=== PATIENT | female | born 1990 | race Caucasian/White ===

== ENCOUNTER 2024-01-13 11:23 | Outpatient (CLI) | payer OTHER, SELFPAY ==
[2024-01-13 12:01] LABS: Hematocrit 41.5 % (37.0-47.0); Hemoglobin 14.1 g/dL (12.0-15.0); Mean Corpuscular Hemoglobin 31.5 pg (26-34); Mean Corpuscular Volume 92.8 fl (80-100); Mean Platelet Volume 8.9 fl (7.4-10.4); Platelet Count Result 356 k/mm3 (150-375); Red Blood Count 4.47 M/mm3 (4.2-5.4); Red Cell Distribution Width 11.3 % (11.5-14.5); White Blood Count 4.6 K/mm3 (4.5-10.0)
[2024-01-13 12:11] LABS: Anion Gap 9 mmol/L (4-12); Blood Urea Nitrogen 19 mg/dL (7-17); Calcium 9.6 mg/dL (8.4-10.2); Carbon Dioxide 30 mmol/L (22-30); Chloride 103 mmol/L (98-107); Estimated Glomerular Filt Rate > 60; Glucose 85 mg/dL (65-110); Potassium 4.2 mmol/L (3.4-5.0); Sodium 142 mmol/L (137-145)
[2024-01-13 12:19] LABS: Prealbumin 26.4 mg/dL (17.6-36.0)
[2024-01-13 12:35] LABS: Iron 163 ug/dL (37-170)
[2024-01-16 16:47] LABS: Vitamin B1 19 nmol/L (8-30)
== END 2024-01-13 11:24 | disposition home or self-care (01) ==
PROVIDERS: Visit Provider Surgery Plastic and Reconstructive Surgery
DX: Z98.84 Bariatric surgery status (principal)
CPT/HCPCS: 36415; 80048; 82040; 83540; 84134; 84425; 85027

== ENCOUNTER 2024-02-09 01:46 | Day surgery (SDC) | payer OTHER, SELFPAY ==
[2024-02-01 09:42] VITALS: BMI 31.4
--- NOTE | 2024-02-01 09:43 | PC.NURSE ---
Report to the Outpatient Waiting Room, entrance under the green pavilion located off [facility], at time _0630_ on date _[id number]_. Planned Procedure Time: _0830_. Time changes happen often and if your time is changed the preop area will call you the afternoon before. - You and your visitor will be asked to self-screen and do not enter if you have any COVID symptoms. - A mask is optional within the hospital at this time. Patients may have clear liquids (water, carbonated beverages, clear teas, apple juice) until 3 hours prior to surgery with a maximum of 20 ounces. - No food from midnight until time of surgery Take the following medications with a SIP of water the morning of surgery: _Clonazepam if needed. DO NOT STOP ANY OF YOUR OTHER PRESCRIPTION MEDICATIONS PRIOR TO SURGERY ?EXCEPT THE FOLLOWING Medications to discontinue per physician Multivitamin and calcium Date to take last otbm___[id number] Please no make-up, nail tunisian, hairspray, perfume, deodorant, or body powder the day of surgery. No jewelry (including any body piercings) or valuables the day of surgery, leave them at home. Please take a shower or bath the night before, or the morning of, surgery with an antibacterial soap. Wear comfortable, loose fitting clothing. - Jewelry must be removed prior to entering the operating room. Rings and piercings that are not removed may be cut off. - The hospital will not accept responsibility for valuables. - Please leave all valuables, including medications, at home the day of surgery. If you are going home after surgery, a licensed cdl truck driver must drive you home. - NO public transportation without another adult if you receive anesthesia. - We recommend that an adult stay with you for 24 hours following discharge. - We also recommend that you do not drive, make important decision, drink alcoholic beverages, or take any drugs that were not prescribed by your health care provider for at least 24 hours after your discharge time. Follow any additional instructions given to you from your surgeon. If you or anyone in your household have experienced Covid symptoms in the past week, please notify your surgeon or the nurse liaison at the phone number below for possible testing. Telephone instructions given to _Patti___and asked if any additional questions and then verbalized understanding. Patient advised to call surgeon office or pre surgery nurse liaison [phone] if any additional questions.
[2024-02-09] VITALS (12 sets, daily range): BP systolic 103–134; BP diastolic 50–81; PULSE 72–99; RESP 10–16; TEMP 36.2; O2SAT 100
--- NOTE | 2024-02-09 06:20 | ECG_ITS ---
Test Date: 2024-02-09 07:04:34 Measurements Intervals Gautier Rate: 81 P: 64 MA: 113 QRS: 48 QRSD: 111 T: 15 QT: 341 QTc: 396 Interpretive Statements SINUS RHYTHM WITH SINUS ARRHYTHMIA WITH SHORT MA INTERVAL INTRAVENTRICULAR CONDUCTION DELAY BORDERLINE ST-T WAVE ABNORMALITY- ANTEROLAT/INF LEADS BORDERLINE ECG No previous ECG available for comparison Electronically Signed On 02-09-2024 08:27:08 CDT by Cesar Sheikh D.O.
--- NOTE | 2024-02-09 06:55 | WPDHPUPDATE1 ---
History and Physical Update Update Date/Time: 02/09/24 06:55 History and Physical has been reviewed, including an updated exam of the patient. There are NO changes in the patient's condition. Risks, benefits, and alternatives have been discussed and questions answered. Patient agrees to proceed with procedure.
--- NOTE | 2024-02-09 06:55 | W.PM.PROC2 ---
Procedure Note - Detailed Date of Procedure 02/09/24 Pre-op Diagnosis skin laxity Post-op Diagnosis Same Procedure Performed 1. Bra roll excision 2. Gloria abdominoplasty Surgeon Sean Tyson MD Anesthesia General Findings Tissue removed: Bra Roll 1035 grams Abdominoplasty 5206 grams Lipoaspirate: 1,500 cc Description of Procedure They are here today for the above procedures. Previously and again today the risks, benefits, alternatives were discussed in extensive detail. I wanted them to be very realistic about the risks involved as well as expectations. We discussed aftercare and what to monitor for. I was very upfront about the risks of wound breakdown leading to loss of skin, open wounds, and need for additional procedures with permanent abdominal deformity. We discussed DVT/PE risks and management. Made sure answered all of their questions to their satisfaction today and consent was obtained. They were marked in the preoperative holding area with their verification. The patient was taken to the operating room. Anesthesia was provided by anesthesiology. A Villalobos catheter was started. Placed prone on the operating room table with care taken to protect from injury. Prepped and draped in a standard sterile fashion. A surgical time-out was taken. Stab incisions were made and tumescent solution was infiltrated. Once adequate time was allowed for hemostasis a 5mm basket and 3mm multi hole cannula were utilized to complete suction lipectomy based on S.A.F.E. technique in multiple planes and passes. Suction lipectomy continued to result based on pre-operative planning, intra-operative observation, and rolling pinch test which were in full agreement. Bra roll excision A 10 blade was used to make the upper incision and dissection was continued inferior elevating what we necessary for closure. The intervening tissue was excised. This was closed with 3 point suture with 2-0 Vicryl followed 2-0 PDO strattafix, 3-0 stratafix ,running subcuticular 4-0 Monocryl, and tissue glue. Abdomen Patient was then placed supine with care taken to protect from injury. I placed the patient in a flexed position to verify the upper and lower markings would reach. I then placed supine. A thorough abdominal examination was completed. Stab incisions were made and tumescent solution infiltrated. Stab incisions were made and tumescent solution was infiltrated. Once adequate time was allowed for hemostasis a 5mm basket and 3mm multi hole cannula were utilized to complete suction lipectomy based on S.A.F.E. technique in multiple planes and passes. Suction lipectomy continued to result based on pre-operative planning, intra-operative observation, and rolling pinch test which were in full agreement. A 10 blade was used to make the upper incision as well as the vertical excision. I continued dissection down to the level of fascia. Elevated just what was necessary for repair of the diastasis. I then again flexed the bed to verify the upper skin flap would reach the lower markings without tension. Once verified I placed her supine once again and a 10 blade used to make the lower incision. I elevated up to level the umbilicus and left the umbilicus intact on a well-vascularized stalk. The intervening tissue was removed. A 2 mm blunt cannula with 0.5% bupivacaine was injected deep to the fascia bilaterally. I plicated the diastasis recti using 0 PDO Stratafix barbed suture. This was in 2 separate layers using 2 separate sutures as well. After the patient was flexed (below) plicated the fascia with 0 PDO Stratafix in two separate layers. The patient was flexed and starting from superior to inferior began plication using 2-0 Vicryl to obliterate all space in a standard progressive tension fashion. At the umbilicus I marked out the location of the skin and inset this with 3-0 Monocryl and 4-0 Vicryl. I continued the remainder of the plica
[2024-02-09] MEDS: LACTATED RINGERS 1,000 ML 30 ML IV CONT ×3 (07:00→15:26)
[2024-02-09 07:06] LABS: Urine Cotinine NEGATIVE
[2024-02-09] MEDS: SCOPOLAMINE 1 MG PATCH 1 PATCH TRANSDERM (07:31)
--- NOTE | 2024-02-09 07:53 | P.PNAN_ITS ---
Anes - Initial Pre Proc Eval Procedure: Operation Date: 02/09/24 08:30 Proposed Procedures p Samantha Ramirez Abdominoplasty, Excision Bra Roll - Sean Tyson MD Date/Time: 02/09/24 07:53 Surgeon: Sean Tyson MD Pre Op Diagnosis: skin laxity Patient Data Age: 33 Gender: F Height: 1.7 m Weight: 91.25 kg Last Vital Signs Temp 97.1 F L 02/09/24 07:28 Pulse 87 02/09/24 07:28 Resp 16 02/09/24 07:28 BP 124/73 02/09/24 07:28 Pulse Ox 100 02/09/24 07:28 O2 Del Method Room Air 02/09/24 07:28 Allergies Allergy/AdvReac Type Severity Reaction Status Date / Time cefaclor [From [facility]] Allergy Intermediate Hives Verified 02/09/24 07:27 Home Medications Medication Instructions Recorded Confirmed Type calcium carbonate 500 mg-vitamin 1 tablet PO DAILY 02/01/24 02/09/24 History D3 3.125 mcg (125 unit) tablet clonazepam 0.25 mg disintegrating 0.25 mg PO DAILY PRN Anxiety 02/01/24 02/09/24 History tablet wdwaqppv-wdhidtct-ctnm 45 mg-folic 1 cap PO DAILY 02/01/24 02/09/24 History acid 800 mcg-vit K 120 mcg capsule (Bariatric Multivitamins) Laboratory Tests 02/09/24 06:44 Cotinine Negative Patient hx anesthesia problems: none Family hx anesthesia problems: none Results Review: All pre-operative results and documents have been reviewed as part of the pre- operative evaluation. [facility] Social History Social History Smoking packs per day: 0.5 Smoking cigarettes per day: 10.0 Years smoked: 7 Smoking pack-years: 3.50 Smoking status: Former smoker Tobacco type: cigarettes Smoking end date: 01/31/23 Living arrangements: with family Spiritual care concerns: No Anes - Eval Final PreProcedure Day of Procedure 02/09/24 07:53 Patient weight: obese Heart: regular rate and rhythm Lungs: clear to auscultation Airway: Mallampati scale class II Neurological: alert and oriented Last oral intake: >/= 8 hours ASA classification: II Emergent: no Anesthetic plan: proceed Anesthesia type and monitoring: general ETT and standard monitoring Results Review: All pre-operative results and documents have been reviewed as part of the pre- operative evaluation. Informed Consent: The patient's anesthetic plan and its attendant risks and benefits were discussed with the patient/family/POA. Questions were solicited and answers provided to the satisfaction of the patient/family/POA.
[2024-02-09] MEDS: ceFAZolin 2 GM/D5W 50 ML 2 GM/50 ML BAG IVPB (08:36)
[2024-02-09] MEDS: TRANEXAMIC ACID 1,000MG/ISO100 1,000 MG/100 ML BAG 200 MG IVPB (08:59)
[2024-02-09] MEDS: BUPIVACAINE/EPINEPHRINE 0.5% 10 ML VIAL 60 ML INFILTRATE (09:31)
[2024-02-09] MEDS: LACTATED RINGERS IRRIG 1,000 ML, LIDOCAINE HCL 1% LOCAL INJ 50 ML, EPINEPHrine HCL INJ ... INFILTRATE ×2 (12:00)
[2024-02-09] MEDS: ceFAZolin SODIUM 1 GM VIAL 2 GM IV PUSH (12:38)
[2024-02-09] MEDS: fentaNYL CITRATE INJ (*CRX) 100 MCG/2 ML VIAL 25 MCG IV PUSH ×2 (15:40→15:47)
[2024-02-09] MEDS: oxyCODONE HCL (*CRX) 5 MG TAB IR PO (17:16)
--- NOTE | 2024-02-09 17:54 | SUR.PHASEII ---
PATIENT ASSISTED WITH DRESSING; FELT DIZZY. NOW RESTING ON RECLINER. ABDOMINAL BINDER CHANGED (SIZE LARGE, 12 INCHES). ENCOURAGED TO PUSH ORAL FLUIDS.
--- NOTE | 2024-02-09 18:30 | SUR.PHASEII ---
1720 PATIENT ABLE TO TRANSFER TO WHEELCHAIR WITHOUT DIZZINESS.
== END 2024-02-09 18:31 | disposition home or self-care (01) ==
PROVIDERS: Visit Provider Surgery Plastic and Reconstructive Surgery
PROC: (CPT 15877; principal; 2024-02-09 08:30)
DX: Z41.1 Encounter for cosmetic surgery (principal); L57.4 Cutis laxa senilis; Z87.891 Personal history of nicotine dependence; E66.9 Obesity, unspecified; Z68.31 Body mass index [BMI] 31.0-31.9, adult
CPT/HCPCS: 15877; 15830; 15847; 15839; 80307; 93005; A9270; J0171; J0690; J1100; J1170; J2250; J2405; J2704; J3010; J7120